=== PATIENT | female | born 1980 | race Caucasian/White ===

== ENCOUNTER 2017-09-30 08:16 | Emergency (ER) | payer BC ==
[2017-09-30 08:51] VITALS: BP 102/50
--- NOTE | 2017-09-30 09:39 | UC ---
Respiratory Complaint HPI - HPI Summary HPI Summary: 1 WEEK OF CHEST TIGHTNESS, NAUSEA, ST, SINUS PRESSURE, COUGH AND SUBJECTIVE FEVER. FEELS IT IS HARD TO TAKE A DEEP BREATH. - History of Current Complaint Chief Complaint: UCRespiratory Stated Complaint: SINUS PAIN,COUGH,DIFFICULTY BREATHING Time Seen by Provider: 09/30/17 09:15 Hx Obtained From: Patient Hx Last Menstrual Period: 09/02/17 Onset/Duration: Gradual Onset, Lasting Days, Still Present Timing: Constant Severity Initially: Moderate Severity Currently: Moderate Pain Intensity: 5 Pain Scale Used: 0-10 Numeric Character: Cough: Nonproductive Aggravating Factors: Nothing Alleviating Factors: Nothing Associated Signs And Symptoms: Positive: Dyspnea, Fever, Chills, URI, Nasal Congestion, Sinus Discomfort - Allergies/Home Medications Allergies/Adverse Reactions: Allergies Allergy/AdvReac Type Severity Reaction Status Date / Time No Known Allergies Allergy Verified 09/30/17 08:32 Home Medications: Home Medications Amphetamine-Dextroamphetamine [Adderall 10 mg-] 1 tab PO Q8HR 09/30/17 [History Confirmed 09/30/17] PMH/Surg Hx/FS Hx/Imm Hx Psychological History: Anxiety, Depression - Surgical History Surgical History: Yes Surgery Procedure, Year, and Place: jaw surgery 1994. laparoscopy for ovarian cyst removal 2009 OR 2010 - Family History Known Family History: Positive: Hypertension, Other - father with brain cancer, mother with brain tumor , breast cancer - Social History Alcohol Use: Rare Alcohol Amount: /2 month Substance Use Type: None Smoking Status (MU): Never Smoked Tobacco Have You Smoked in the Last Year: No - Immunization History Most Recent Influenza Vaccination: 2014 Most Recent Tetanus Shot: UNSURE Review of Systems Constitutional: Chills, Fatigue ENT: Sore Throat, Nasal Discharge Respiratory: Cough Cardiovascular: Negative Gastrointestinal: Nausea All Other Systems Reviewed And Are Negative: Yes Physical Exam Triage Information Reviewed: Yes Appearance: Well-Appearing, No Pain Distress, Well-Nourished Vital Signs: Initial Vital Signs Temp 97.8 F 09/30/17 08:25 Pulse 112 09/30/17 08:25 Resp 18 09/30/17 08:25 BP 102/50 09/30/17 08:25 Pulse Ox 100 09/30/17 08:25 Vital Signs Reviewed: Yes Eyes: Positive: Conjunctiva Clear ENT: Positive: Hearing grossly normal, Pharynx normal, TMs normal Neck: Positive: Supple, Nontender, No Lymphadenopathy Respiratory Exam: Normal Cardiovascular: Positive: Tachycardia Abdomen Description: Positive: Soft Musculoskeletal: Positive: No Edema Neurological: Positive: Alert Psychological: Positive: Age Appropriate Behavior Skin: Negative: rashes UC Diagnostic Evaluation - Laboratory O2 Sat by Pulse Oximetry: 100 Respiratory Course/Dx - Differential Dx/Diagnosis Provider Diagnoses: ACUTE BRONCHITIS Discharge - Discharge Plan Condition: Stable Disposition: HOME Prescriptions: Albuterol HFA INHALER* [Ventolin HFA Inhaler*] 2 puff INH Q4H PRN #1 mdi PRN Reason: Shortness Of Breath Amoxicillin PO (*) [Amoxicillin 500 MG CAP*] 1,000 mg PO Q12H #28 cap Benzonatate CAP* [Tessalon CAP*] 1 - 2 cap PO TID PRN #30 cap PRN Reason: Cough Patient Education Materials: Acute Bronchitis (ED) Referrals: Pavan Valle MD [Primary Care Provider] - If Needed
== END 2017-09-30 09:37 | disposition home or self-care (01) ==
LOC: UCEAST 08:16
DX: J20.9 Acute bronchitis, unspecified (principal); F41.9 Anxiety disorder, unspecified; F32.9 Major depressive disorder, single episode, unspecified
CPT/HCPCS: 99212; G0463

== ENCOUNTER 2017-10-10 08:21 | Emergency (ER) | payer BC ==
--- NOTE | 2017-10-10 09:30 | UC ---
Respiratory Complaint HPI - HPI Summary HPI Summary: 37 yo female with 3 week hx of nausea/wt loss (about 6 LBS), productive cough, mild BHANDARI, tremors, malaise and dizziness no fever/chills aches all over - History of Current Complaint Chief Complaint: UCRespiratory Stated Complaint: COUGH NAUSEA WEAK Time Seen by Provider: 10/10/17 08:46 Hx Obtained From: Patient Hx Last Menstrual Period: 09/13/17 Onset/Duration: Gradual Onset, Lasting Weeks Timing: Constant Severity Initially: Mild Severity Currently: Moderate Pain Intensity: 4 Pain Scale Used: 0-10 Numeric Character: Cough: Productive Aggravating Factors: Exertion, Deep Breaths Alleviating Factors: Nothing - Allergies/Home Medications Allergies/Adverse Reactions: Allergies Allergy/AdvReac Type Severity Reaction Status Date / Time No Known Allergies Allergy Verified 10/10/17 08:41 PMH/Surg Hx/FS Hx/Imm Hx Previously Healthy: Yes Psychological History: Anxiety, Depression - Surgical History Surgical History: Yes Surgery Procedure, Year, and Place: jaw surgery 1994. laparoscopy for ovarian cyst removal 2009 OR 2010 - Family History Known Family History: Positive: Hypertension, Other - father with brain cancer, mother with brain tumor , breast cancer - Social History Alcohol Use: Rare Alcohol Amount: /2 month Substance Use Type: None Smoking Status (MU): Never Smoked Tobacco Have You Smoked in the Last Year: No - Immunization History Most Recent Influenza Vaccination: 2014 Most Recent Tetanus Shot: UNSURE Review of Systems Constitutional: Fatigue Skin: Negative Eyes: Negative ENT: Nasal Discharge, Sinus Congestion, Sinus Pain/Tenderness Respiratory: Cough Cardiovascular: Palpitations Gastrointestinal: Negative Genitourinary: Negative Motor: Negative Neurovascular: Negative Musculoskeletal: Negative Neurological: Headache, Weakness Psychological: Negative Is Patient Immunocompromised?: No All Other Systems Reviewed And Are Negative: Yes Physical Exam Triage Information Reviewed: Yes Appearance: Well-Appearing, No Pain Distress, Well-Nourished, Thin Vital Signs: Initial Vital Signs Temp 98.8 F 10/10/17 08:32 Pulse 94 10/10/17 08:32 Resp 14 10/10/17 08:32 BP 122/65 10/10/17 08:32 Pulse Ox 100 10/10/17 08:32 Eyes: Positive: Conjunctiva Clear ENT: Positive: Hearing grossly normal, Nasal congestion, TMs normal, Sinus tenderness, Uvula midline. Negative: Nasal drainage, TM bulging, TM dull, TM red, Tonsillar swelling, Tonsillar exudate, Trismus, Muffled voice, Hoarse voice , Dental tenderness Dental Exam: Normal Neck: Positive: Supple, Nontender, No Lymphadenopathy Respiratory: Positive: Lungs clear, Normal breath sounds, No respiratory distress, No accessory muscle use Cardiovascular: Positive: RRR, No Murmur Abdomen Description: Negative: Nontender - diffuse mild tenderness, CVA Tenderness (R), CVA Tenderness (L) Musculoskeletal: Positive: ROM Intact, No Edema Neurological: Positive: Alert Psychological Exam: Normal Skin Exam: Normal UC Diagnostic Evaluation - Laboratory O2 Sat by Pulse Oximetry: 100 - normal/not hypoxic - Radiology Xray Interpretation: No Acute Changes - CXR Radiology Interpretation Completed By: Radiologist Re-Evaluation - Re-Evaluation First Eval Re-Evaluation Time: 11:18 Change: Improved - feels much better Respiratory Course/Dx - Differential Dx/Diagnosis Provider Diagnoses: bronchitis. dehydration Discharge - Discharge Plan Condition: Stable Disposition: HOME Prescriptions: Azithromycin TAB* [Zithromax TAB*] 250 mg PO DAILY #6 tab Patient Education Materials: Dehydration (ED) Referrals: Pavan Valle MD [Primary Care Provider] - As Soon As Possible Additional Instructions: blood work pending recheck for new or worsening symptoms
[2017-10-10] MEDS ORDERED: NS 0.9% 1000 ML* 1,000 ML BOLUS ONE (10:04)
--- NOTE | 2017-10-10 10:37 | RAD ---
INDICATION: Cough x3 weeks COMPARISON: Previous chest x-ray April 27, 2015 TECHNIQUE: PA and lateral views of the chest were obtained. FINDINGS: The heart and mediastinum are normal in size and contour. The lungs are grossly clear. There is no evidence of large pleural effusion. Visualized bones are normal for the patient's age. There is no radiographic evidence of free air beneath the diaphragm IMPRESSION: No radiographic evidence of acute cardiopulmonary disease.
[2017-10-10 11:12] VITALS: BP 114/71
[2017-10-10 16:30] LABS: Hematocrit 43 % (35-47); Hemoglobin 14.5 g/dl (12.0-16.0); Mean Corpuscular HGB Conc 34 g/dl (31-36); Mean Corpuscular Hemoglobin 31 pg (27-31); Mean Corpuscular Volume 91 fL (80-97); Mean Platelet Volume 7 um3 (7.4-10.4); Red Blood Count 4.69 10^6/ul (4.0-5.4); Red Cell Distribution Width 12 % (10.5-15); White Blood Count 8.8 10^3/ul (3.5-10.8)
[2017-10-10 16:40] LABS: BUN/Creatinine Ratio 13.9 (8-20); Blood Urea Nitrogen 10 mg/dL (6-24); CO2 Carbon Dioxide 25 mmol/L (22-32); Calcium 9.8 mg/dL (8.6-10.3); Chloride 101 mmol/L (101-111); EGFR Non-African American 90.2 (>60); Glucose 76 mg/dL (70-100); Sodium 138 mmol/L (133-145)
[2017-10-10 16:43] LABS: Anion Gap 12 mmol/L (2-11)
== END 2017-10-10 11:27 | disposition home or self-care (01) ==
LOC: UCEAST 08:21
DX: J20.9 Acute bronchitis, unspecified (principal); E86.0 Dehydration; F41.9 Anxiety disorder, unspecified; F32.9 Major depressive disorder, single episode, unspecified
CPT/HCPCS: 36415; 71020; 80048; 85025; 99212; G0463

== ENCOUNTER 2019-02-10 21:50 | Emergency (ER) | payer BC ==
[2019-02-10 22:04] VITALS: BP 113/67
[2019-02-10] MEDS ORDERED: LORazepam INJ* 2 MG/ML 1 ML VIAL IV PUSH ONE (22:47)
[2019-02-10] MEDS ORDERED: Ondansetron INJ* 2 MG/ML VIAL IV ONE (22:48)
--- NOTE | 2019-02-10 22:51 | ED ---
Nausea/Vomiting/Diarrhea HPI - HPI Summary HPI Summary: ONSET 3 PM TODAY OF WATERY DIARRHEA AND CRAMPY ABDOMINAL PAIN. EPISODES ABOUT EVERY HOUR. LAST 2 EPISODES WERE [place] BLOOD. haS ALSO HAD NAUSEA AND 3-4 EPISODES OF VOMITING. NO FEVER. PATIENT FEELS SLIGHTLY SHORT OF BREATH AND DIZZY BUT ADMITS TO HAVING ANXIETY WHICH CAN MANIFEST SIMILAR SYMPTOMS. SHE DENIES ANY RECENT TRAVEL OR ANTIBIOTIC USE. NO QUESTIONABLE FOODS OF WHICH SHE IS AWARE. - History of Current Complaint Chief Complaint: UCGI Stated Complaint: BLOODY DIARRHEA Time Seen by Provider: 02/10/19 21:54 Hx Obtained From: Patient Hx Last Menstrual Period: 12/30/18 Onset/Duration: Sudden Onset, Lasting Hours, Still Present Timing: Constant Severity Initially: Moderate Severity Currently: Moderate Pain Intensity: 4 Pain Scale Used: 0-10 Numeric Location: Diffuse Character: Dull, Cramping Aggravating Factor(s): Nothing Alleviating Factor(s): Nothing Nausea/Vomiting Presence: Nauseated, Vomiting Vomiting Frequency: Every 3-4 hours Nausea/Vomiting Duration: 0-12 hours Vomiting Characteristics: Nonbilious Diarrhea Presence: Yes Diarrhea Frequency: Every 1-2 hours - Her care I have a 38-year-old - Allergies/Home Medications Allergies/Adverse Reactions: Allergies Allergy/AdvReac Type Severity Reaction Status Date / Time No Known Allergies Allergy Verified 02/10/19 21:54 Home Medications: Home Medications L.acidoph,Paracasei, B.lactis [Probiotic] 1 each PO BID 02/10/19 [History Confirmed 02/10/19] PMH/Surg Hx/FS Hx/Imm Hx Endocrine/Hematology History: Denies: Hx Diabetes, Hx Thyroid Disease Cardiovascular History: Denies: Hx Hypertension Respiratory History: Denies: Hx Asthma, Hx Chronic Obstructive Pulmonary Disease (COPD) GI History: Denies: Hx Ulcer Neurological History: Reports: Hx Migraine Psychiatric History: Reports: Hx Anxiety - Cancer History Hx Chemotherapy: No Hx Radiation Therapy: No - Surgical History Surgery Procedure, Year, and Place: jaw surgery 1994. laparoscopy for ovarian cyst removal 2009 OR 2010 Infectious Disease History: No Infectious Disease History: Denies: Hx Clostridium Difficile, Hx Hepatitis, Hx Human Immunodeficiency Virus (HIV), Hx of Known/Suspected MRSA, Hx Shingles, Hx Tuberculosis, Hx Known/ Suspected VRE, Hx Known/Suspected VRSA, History Other Infectious Disease, Traveled Outside the [place] in Last 30 Days - Family History Known Family History: Positive: Hypertension, Other - father with brain cancer, mother with brain tumor , breast cancer - Social History Alcohol Use: None Alcohol Amount: /2 month Substance Use Type: Reports: None Hx Tobacco Use: No Smoking Status (MU): Never Smoked Tobacco Have You Smoked in the Last Year: No Physical Exam Vital Signs On Initial Exam: Initial Vitals Temp Pulse Resp BP Pulse Ox 98.4 F 85 18 113/67 100 02/10/19 21:58 02/10/19 21:58 02/10/19 21:58 02/10/19 21:58 02/10/19 21:58 Diagnostics - Vital Signs Vital Signs Temp Pulse Resp BP Pulse Ox 02/10/19 21:58 98.4 F 85 18 113/67 100 - Laboratory Lab Statement: Any lab studies that have been ordered have been reviewed, and results considered in the medical decision making process. Discharge - Discharge Plan Referrals: Dayan Romero MD [Primary Care Provider] -
[2019-02-10] MEDS ORDERED: NS 0.9% 1000 ML** 1,000 ML IV SCH (23:00)
[2019-02-10] MEDS ORDERED: NS 0.9% 1000 ML** 1,000 ML IV ONE (23:01)
--- NOTE | 2019-02-10 23:01 | UC ---
Nausea/Vomiting/Diarrhea HPI - HPI Summary HPI Summary: ONSET ABOUT 3 PM TODAY OF CRAMPY ABDOMINAL PAIN AND WATERY DIARRHEA. EPISODES OCCURRING ABOUT EVERY HOUR. LAST 2 EPISODES WERE [place] BLOOD. SHE ALSO HAS HAD SOME NAUSEA AND ABOUT 3-4 EPISODES OF VOMITING. SHE DENIES ANY FEVER. NO RECENT TRAVEL, ANTIBIOTIC USE OR QUESTIONABLE FOODS. SHE IS COMPLAINING OF SOME MILD SHORTNESS OF BREATH AND DIZZINESS BUT ALSO HAS A HISTORY OF ANXIETY AND STATES THESE SYMPTOMS COULD BE DUE TO THAT. - History of Current Complaint Chief Complaint: UCGI Stated Complaint: BLOODY DIARRHEA Time Seen by Provider: 02/10/19 21:54 Hx Obtained From: Patient Hx Last Menstrual Period: 12/30/18 Onset/Duration: Sudden Onset, Lasting Hours, Still Present Timing: Constant Severity Initially: Moderate Severity Currently: Moderate Pain Intensity: 4 Pain Scale Used: 0-10 Numeric Location: Diffuse Character: Cramping Aggravating Factor(s): Nothing Alleviating Factor(s): Nothing Nausea/Vomiting Presence: Nauseated, Vomiting Vomiting Frequency: Every 3-4 hours Nausea/Vomiting Duration: 0-12 hours Vomiting Characteristics: Nonbilious Diarrhea Presence: Yes Diarrhea Frequency: Every 1-2 hours Diarrhea Duration: 0-12 hours Diarrhea Characteristics: Watery, Bright Red Blood per Rect - Allergies/Home Medications Allergies/Adverse Reactions: Allergies Allergy/AdvReac Type Severity Reaction Status Date / Time No Known Allergies Allergy Verified 02/10/19 21:54 Home Medications: Home Medications L.acidoph,Paracasei, B.lactis [Probiotic] 1 each PO BID 02/10/19 [History Confirmed 02/10/19] PMH/Surg Hx/FS Hx/Imm Hx - Additional Past Medical History Additional PMH: PCOS Neurological History: Migraine Psychological History: Anxiety - Surgical History Surgical History: Yes Surgery Procedure, Year, and Place: jaw surgery 1994. laparoscopy for ovarian cyst removal 2009 OR 2010 - Family History Known Family History: Positive: Hypertension, Other - father with brain cancer, mother with brain tumor , breast cancer - Social History Alcohol Use: None Alcohol Amount: /2 month Substance Use Type: None Smoking Status (MU): Never Smoked Tobacco Have You Smoked in the Last Year: No - Immunization History Most Recent Influenza Vaccination: 2014 Most Recent Tetanus Shot: UNSURE Review of Systems All Other Systems Reviewed And Are Negative: Yes Constitutional: Positive: Negative Respiratory: Positive: Negative Cardiovascular: Positive: Negative Gastrointestinal: Positive: Abdominal Pain, Vomiting, Diarrhea, Nausea Genitourinary: Positive: Negative Psychological: Positive: Anxious Physical Exam Triage Information Reviewed: Yes Appearance: Well-Appearing, No Pain Distress, Well-Nourished Vital Signs: Initial Vital Signs Temp 98.4 F 02/10/19 21:58 Pulse 85 02/10/19 21:58 Resp 18 02/10/19 21:58 BP 113/67 02/10/19 21:58 Pulse Ox 100 02/10/19 21:58 Vital Signs Reviewed: Yes Eyes: Positive: Conjunctiva Clear ENT: Positive: Hearing grossly normal, Pharynx normal, TMs normal Neck: Positive: Supple, Nontender, No Lymphadenopathy Respiratory Exam: Normal Cardiovascular Exam: Normal Abdomen Description: Positive: Soft, Other: - DIFFUSELY TENDER. Negative: CVA Tenderness (R), CVA Tenderness (L), Distended, Guarding Bowel Sounds: Positive: Present Musculoskeletal: Positive: No Edema Neurological: Positive: Alert Psychological: Positive: Age Appropriate Behavior, Other: - ANXIOUS Skin: Negative: Rashes Naus/Vom/Diarrhea Course/Dx - Course Course Of Treatment: PATIENT WITH NEW ONSET OF BLOODY DIARRHEA TODAY. SHE HAS A COUSIN WITH CROHN'S DISEASE HOWEVER THE PATIENT HAS NEVER BEEN EVALUATED FOR INFLAMMATORY BOWEL DISEASE NOR HAS SHE HAD ANY SUSPICIOUS SYMPTOMS PRIOR TO TODAY. CONCERN FOR ENTEROHEMORRHAGIC E. COLI. PATIENT IS EXTREMELY ANXIOUS ABOUT HER SYMPTOMS. DISCUSSED DRAWING LABS TODAY AND HAVING HER FOLLOW-UP WITH GI ON TUESDAY HOWEVER GIVEN HER LEVEL OF ANXIETY AND DISTINCTLY TENDER ABDOMEN WILL SEND TO THE ER FOR FURTHER EVALUATION. THE PATIENT DID TAKE 1 MG OF ATIVAN BY MOUTH JUST PRIOR TO LEAVING THE . 4 MG OF ZOFRAN GIVEN IV. STOOL STUDIES HAVE BEEN SENT FROM HERE. FOBT POSITIVE. - Differential Dx/Diagnosis Provider Diagnosis: Bloody diarrhea Condition At Discharge: Stable - Physician Notification/Consults Discussed Case/Management/Disposition Of Patient With: Bryn Hou - TO [facility] [place] ER BY AMBULANCE Time Discussed With Above Provider: 23:00 Instructed by Provider To: Will See In ED Discharge - Sign-Out/Discharge Documenting (check all that apply): Patient Departure All imaging exams completed and their final reports reviewed: No Studies - Discharge Plan Condition: Stable Disposition: TRANS HIGHER LVL OF CARE FAC Referrals: Dayan Romero MD [Primary Care Provider] - - Billing Disposition and Condition Condition: STABLE Disposition: Trans Higher Lvl of Care Fac
--- NOTE | 2019-02-13 13:07 | UC ---
- Progress Note Progress Note: CALLED AND SPOKE WITH PATIENT. ADVISED THAT STOOL STUDIES SHOWED POSITIVE LACTOFERRIN CONSISTENT WITH COLITIS IDENTIFIED ON CT SCAN DONE IN THE ER. O& P AND C. DIFFICILE NEGATIVE. FULL CULTURE STILL PENDING. PATIENT STATES HER SYMPTOMS ARE MUCH IMPROVED AND SHE NO LONGER HAS BLOODY DIARRHEA. WILL BE FOLLOWING UP WITH HER PCP DR. ROMERO. I DISCUSSED WITH PATIENT HER FINDING OF SMALL BOWEL INTUSSUSCEPTION. SHE STATES THIS WAS DISCUSSED WITH HER IN THE ER AND GIVEN THAT IT WAS NONOBSTRUCTIVE SHE WAS ADVISED TO MONITOR HER SYMPTOMS AND FOLLOW-UP WITH HER PCP WHICH SHE IS DOING. IF HER SYMPTOMS WERE TO RETURN I RECOMMENDED SHE GO BACK TO THE ER AND FOLLOW-UP WITH [facility]. Course/Dx - Diagnoses Provider Diagnoses: Bloody diarrhea - Provider Notifications Time Discussed With Above Provider: 23:00 Instructed by Provider To: MD Will See In ED Discharge - Sign-Out/Discharge Documenting (check all that apply): Post-Discharge Follow Up All imaging exams completed and their final reports reviewed: No Studies - Discharge Plan Condition: Stable Disposition: TRANS HIGHER LVL OF CARE FAC Referrals: Dayan Romero MD [Primary Care Provider] - - Billing Disposition and Condition Condition: STABLE Disposition: Trans Higher Lvl of Care Fac
== END 2019-02-10 23:08 | disposition short-term general hospital (02) ==
LOC: UCEAST 21:50
DX: K92.1 Melena (principal); R11.2 Nausea with vomiting, unspecified; R10.84 Generalized abdominal pain; R06.02 Shortness of breath; R42 Dizziness and giddiness; F41.9 Anxiety disorder, unspecified
CPT/HCPCS: 83630; 87045; 87046; 87328; 87329; 87493; 87899; 96361; 96374; 99213; G0463; J2405

== ENCOUNTER 2019-02-10 23:34 | Emergency (ER) | payer BC ==
[2019-02-10] MEDS ORDERED: Ondansetron INJ* 2 MG/ML VIAL IV ONE (23:59)
[2019-02-10] MEDS ORDERED: NS 0.9% 1000 ML** 2,000 ML IV ONE (23:59)
[2019-02-11] MEDS ORDERED: Dicyclomine CAP* 10 MG PO ONE
--- NOTE | 2019-02-11 00:08 | ED ---
Abdominal Pain/Female - HPI Summary HPI Summary: Pt is a 38 y/o F presenting to the ED with a chief complaint of abd pain in the periumbilical area, described as a dull cramping onset tonight after dinner. She reports associated nausea, vomiting, bloody diarrhea, and dizziness. She denies fever. She reports a hx of spontaneously losing a lot of weight, and then she started taking probiotics which helped keep her regular but also had her gain back some of the weight. She denies recent travel or illness. - History of Current Complaint Chief Complaint: EDAbdPain Stated Complaint: BLOODY STOOL PER EMS Time Seen by Provider: 02/10/19 23:39 Hx Obtained From: Patient Hx Last Menstrual Period: 12/30/18 Onset/Duration: Sudden Onset, Lasting Hours, Still Present Timing: Hours Severity Initially: Moderate Severity Currently: Moderate Pain Intensity: 5 Pain Scale Used: 0-10 Numeric Location: Umbilical Radiates: No Character: Dull, Cramping Aggravating Factor(s): Nothing Alleviating Factor(s): Nothing Associated Signs and Symptoms: Positive: Dizzy, Blood in Stool, Nausea, Vomiting , Diarrhea Allergies/Adverse Reactions: Allergies Allergy/AdvReac Type Severity Reaction Status Date / Time No Known Allergies Allergy Verified 02/10/19 23:35 PMH/Surg Hx/FS Hx/Imm Hx Previously Healthy: Yes Endocrine/Hematology History: Denies: Hx Diabetes, Hx Thyroid Disease Cardiovascular History: Denies: Hx Hypertension Respiratory History: Denies: Hx Asthma, Hx Chronic Obstructive Pulmonary Disease (COPD) GI History: Denies: Hx Ulcer - Cancer History Hx Chemotherapy: No Hx Radiation Therapy: No - Surgical History Surgery Procedure, Year, and Place: jaw surgery 1994. laparoscopy for ovarian cyst removal 2009 OR 2010 Infectious Disease History: No Infectious Disease History: Denies: Hx Clostridium Difficile, Hx Hepatitis, Hx Human Immunodeficiency Virus (HIV), Hx of Known/Suspected MRSA, Hx Shingles, Hx Tuberculosis, Hx Known/ Suspected VRE, Hx Known/Suspected VRSA, History Other Infectious Disease, Traveled Outside the [place] in Last 30 Days - Family History Known Family History: Positive: Hypertension, Other - father with brain cancer, mother with brain tumor , breast cancer - Social History Alcohol Use: None Alcohol Amount: /2 month Hx Substance Use: No Substance Use Type: Reports: None Hx Tobacco Use: No Smoking Status (MU): Never Smoked Tobacco Have You Smoked in the Last Year: No Review of Systems Negative: Fever Positive: Abdominal Pain, Vomiting, Diarrhea, Nausea, Other - blood in stool Neurological: Other - dizziness All Other Systems Reviewed And Are Negative: Yes Physical Exam - Summary Physical Exam Summary: Appearance: Well-appearing, Well-nourished, lying in bed comfortably Skin: Warm, dry, no obvious rash Eyes: sclera anicteric, no conjunctival pallor ENT: mucous membranes moist, pharynx appears normal Neck: Supple, nontender Respiratory: Clear to auscultation, no signs of respiratory distress Cardiovascular: Normal S1, S2. No murmurs. Normal distal pulses in tibial and radial bilaterally. Abdomen: Soft, nontender, normal active bowel sounds present Musculoskeletal: Normal, Strength/ROM Intact Neurological: A&Ox3, awake and alert, mentation is normal, speech is fluent and appropriate Psychiatric: affect is normal, does not appear anxious or depressed Triage Information Reviewed: Yes Vital Signs On Initial Exam: Initial Vitals Temp Pulse Resp BP Pulse Ox 98.1 F 72 16 127/76 100 02/10/19 23:35 02/10/19 23:35 02/10/19 23:35 02/10/19 23:35 02/10/19 23:35 Vital Signs Reviewed: Yes Diagnostics - Vital Signs Vital Signs Temp Pulse Resp BP Pulse Ox 02/10/19 23:35 98.1 F 72 16 127/76 100 - Laboratory Result Diagrams: 02/11/19 00:18 02/11/19 00:18 Lab Statement: Any lab studies that have been ordered have been reviewed, and results considered in the medical decision making process. - CT Abd/pelv CT CT Interpretation Completed By: Radiologist Summary of CT Findings: 1. Fatty infiltration of the liver. 2. 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 3. Left pelvic small bowel intussusception measuring proximally 5.7 cm in length with no significant obstruction. 4. Minimal nonspecific left colitis from the splenic flexure to the rectum. 5. Otherwise negative CT abdomen/pelvis. ED physician has reviewed this report. Abdominal Pain Fem Course/Dx - Course Course Of Treatment: Pt is a 38 y/o F presenting to the ED with a chief complaint of abd pain in the periumbilical area, described as a dull cramping onset tonight after dinner. She reports associated nausea, vomiting, bloody diarrhea, and dizziness. She denies fever, recent travel, or recent illness. Abd/pelv CT shows: 1. Fatty infiltration of the liver. 2. 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 3. Left pelvic small bowel intussusception measuring proximally 5.7 cm in length with no significant obstruction. 4. Minimal nonspecific left colitis from the splenic flexure to the rectum. 5. Otherwise negative CT abdomen/pelvis. She will be sent home with a dx of colitis, and the pt is agreeable with this plan. - Diagnoses Provider Diagnoses: Colitis Discharge - Sign-Out/Discharge Documenting (check all that apply): Patient Departure Patient Received Moderate/Deep Sedation with Procedure: No - Discharge Plan Condition: Good Disposition: HOME Prescriptions: Ondansetron ODT TAB* [Zofran 4 MG Odt TAB*] 8 mg PO Q6H PRN #12 tab.odt PRN Reason: Nausea Patient Education Materials: Infectious Colitis (ED) Referrals: Dayan Romero MD [Primary Care Provider] - - Billing Disposition and Condition Condition: GOOD Disposition: Home - Attestation Statements Document Initiated by Yarelis: Yes Documenting Scribe: Arely Estevez Provider For Whom Yarelis is Documenting (Include Credential): Bryn Hou MD. Scribe Attestation: Arely Wheeler scribed for Bryn Hou MD. on 02/11/19 at 0627. Scribe Documentation Reviewed: Yes Provider Attestation: The documentation as recorded by the Arely sun accurately reflects the service I personally performed and the decisions made by , Bryn Hou MD. Status of Scribtyrel Document: Viewed
[2019-02-11 00:26] LABS: ABS Basophils 0.1 10^3/ul (0-0.2); ABS Eosinophils 0.1 10^3/ul (0-0.6); ABS Lymphocytes 2.1 10^3/ul (1.0-4.8); ABS Monocytes 0.6 10^3/ul (0-0.8); ABS Neutrophils 6.7 10^3/ul (1.5-7.7); ABS Nucleated RBC 0 10^3/ul; Eosinophil % 0.6 %; Hematocrit 38 % (33-41); Hemoglobin 13.1 g/dL (12.0-16.0); Lymphocyte % 22.5 %; Mean Corpuscular HGB Conc 35 g/dL (31-36); Mean Corpuscular Hemoglobin 32 pg (27-31); Mean Corpuscular Volume 92 fL (80-97); Mean Platelet Volume 6.2 fL (7.4-10.4); Nucleated Red Blood Cells % 0.1; Platelet Count 403 10^3/uL (150-450); Red Blood Count 4.12 10^6 /uL (3.70-4.87); Red Cell Distribution Width 12 % (10.5-15); White Blood Count 9.5 10^3/uL (3.5-10.8)
[2019-02-11 00:43] LABS: ALT 12 U/L (7-52); AST 13 U/L (13-39); Albumin 3.9 g/dL (3.2-5.2); Albumin/Globulin Ratio 1.4 (1-3); Alkaline Phosphatase 38 U/L (34-104); Anion Gap 9 mmol/L (2-11); BUN/Creatinine Ratio 16.2 (8-20); Blood Urea Nitrogen 12 mg/dL (6-24); CO2 Carbon Dioxide 25 mmol/L (22-32); Calcium 8.7 mg/dL (8.6-10.3); Chloride 104 mmol/L (101-111); EGFR African American 105.2 (>60); EGFR Non-African American 86.9 (>60); Globulin 2.7 g/dL (2-4); Glucose 112 mg/dL (70-100); Potassium 3.6 mmol/L (3.5-5.0); Sodium 138 mmol/L (135-145); Total Protein 6.6 g/dL (6.4-8.9)
[2019-02-11 00:49] LABS: HCG Pregnancy < 0.60 mIU/mL
[2019-02-11 01:05] LABS: Urine Appearance Clear; Urine Bacteria Absent (Absent); Urine Bilirubin Negative (Negative); Urine Blood 2+ (Negative); Urine Color Yellow; Urine Glucose Negative (Negative); Urine Ketones 1+ (Negative); Urine Nitrite Negative (Negative); Urine Protein Negative (Negative); Urine Red Blood Cell Trace(0-2/hpf) (Absent); Urine Squamous Epithelial Cell Present (Absent); Urine Urobilinogen Negative (Negative); Urine White Blood Cell Absent (Absent)
[2019-02-11] MEDS ORDERED: Morphine 4 MG/ML VIAL (1 ml) 4 MG/ML VIAL IV ONE (01:20)
[2019-02-11] MEDS ORDERED: Iohexol 300* (CONTRAST) 10 ML SDV IV ONE (01:40)
[2019-02-11] MEDS ORDERED: Azithromycin TAB* 250 MG PO ONE (04:03)
[2019-02-11 04:27] VITALS: BP 118/69
--- NOTE | 2019-02-12 13:14 | ED ---
Progress - Progress Note Progress Note: Patient seen for bloody diarrhea, subsequently went to ER for further evaluation. Labs negative for c. diff. No change in treatment, no call back needed. -[facility] PAC Course/Dx - Course Course Of Treatment: Pt is a 38 y/o F presenting to the ED with a chief complaint of abd pain in the periumbilical area, described as a dull cramping onset tonight after dinner. She reports associated nausea, vomiting, bloody diarrhea, and dizziness. She denies fever, recent travel, or recent illness. Abd/pelv CT shows: 1. Fatty infiltration of the liver. 2. 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 3. Left pelvic small bowel intussusception measuring proximally 5.7 cm in length with no significant obstruction. 4. Minimal nonspecific left colitis from the splenic flexure to the rectum. 5. Otherwise negative CT abdomen/pelvis. She will be sent home with a dx of colitis, and the pt is agreeable with this plan. - Diagnoses Provider Diagnoses: Colitis Discharge - Sign-Out/Discharge Documenting (check all that apply): Patient Departure Patient Received Moderate/Deep Sedation with Procedure: No - Discharge Plan Condition: Good Disposition: HOME Prescriptions: Ondansetron ODT TAB* [Zofran 4 MG Odt TAB*] 8 mg PO Q6H PRN #12 tab.odt PRN Reason: Nausea Patient Education Materials: Infectious Colitis (ED) Referrals: Dayan Romero MD [Primary Care Provider] - - Billing Disposition and Condition Condition: GOOD Disposition: Home
== END 2019-02-11 04:26 | disposition home or self-care (01) ==
LOC: ED 23:34
DX: K52.9 Noninfective gastroenteritis and colitis, unspecified (principal); R10.9 Unspecified abdominal pain; R42 Dizziness and giddiness; R11.2 Nausea with vomiting, unspecified
CPT/HCPCS: 36415; 74177; 80053; 81003; 81015; 83690; 84702; 85025; 96361; 96374; 96375; 99283; A9270-GY; J2270; J2405; Q9967

== ENCOUNTER 2022-07-15 05:57 | Inpatient (IN) ==
[~2022-07-15 05:57] MED LIST: Acetaminophen IV 1 GM/100ML 1,000 MG/100 ML BAG IV SCH; HYDROmorphone 0.5 MG/0.5 ML SYRINGE IV SCH; Lidocaine 2% PF 5 ML VIAL INJ SCH; Lidocaine 4% CREAM (LMX) 5 GM TUBE TOPICAL SCH; Metoclopramide 5 MG/ML VIAL (10 mg) IV SCH; Propofol 10 MG/ML 20 ML BTL IV SCH; Propofol 10 MG/ML 50 ML BTL IV SCH; Succinylcholine 200 mg VIAL 20 mg/ml 10 ml VIAL (200 mg) IV SCH; fentaNYL 100 mcg/2 ml 50 MCG/ML VIAL IV SCH
[2022-07-15] MEDS ORDERED: Lactated Ringers 1000 ml BAG 1,000 ML IV SCH (06:00)
[2022-07-15] MEDS ORDERED: Buffered Lidocaine 1% SYRIN 1 ml INTRADERM ONE (06:00)
[2022-07-15] MEDS ORDERED: Heparin 5000 UNITS/ML 1 mL VIAL ONE (06:41)
[2022-07-15] MEDS ORDERED: Scopolamine 1 mg/72hr PATCH ONE (06:41)
[2022-07-15] MEDS ORDERED: Dexamethasone IV 4 MG/ML VIAL 1 ml VIAL ONE (06:42)
[2022-07-15] MEDS ORDERED: ceFAZolin 2 GM in NS PREMIX 2 GM/100 ML BAG IVPB ONE (06:42)
[2022-07-15] MEDS ORDERED: Ondansetron 4 mg VIAL 2 MG/ML 2 ml VIAL ONE (06:42)
[2022-07-15] MEDS ORDERED: Gentamicin ADULT 40 MG/ML VIAL (2 ML VIAL = 80 MG) ONE (07:16)
[2022-07-15] MEDS ORDERED: Bupivacaine 0.25% SDV 30 ML ONE ×2 (07:16→08:58)
[2022-07-15] MEDS ORDERED: Povidone Iodine 5% OPTH 30 ML BTL ONE (07:16)
[2022-07-15] MEDS ORDERED: ceFAZolin VIAL VIAL ONE (07:16)
[2022-07-15] MEDS ORDERED: ISOSULFAN BLUE 1% 5 ML VIAL 10 MG/ML SUBCUT ONE (07:48)
[2022-07-15] MEDS ORDERED: ceFAZolin 1 GM ADVAN 1 GM ADDV.VIAL IVPB ONE (09:49)
[2022-07-15] MEDS ORDERED: Benzocaine/Menthol LOZ PO PRN (11:09)
[2022-07-15] MEDS ORDERED: Scopolamine 1 mg/72hr PATCH TRANSDERM PRN (11:18)
[2022-07-15] MEDS ORDERED: fentaNYL 100 mcg/2 ml 50 MCG/ML VIAL IV PRN (11:18)
[2022-07-15] MEDS ORDERED: Ondansetron 4 mg VIAL 2 MG/ML 2 ml VIAL IV PRN (11:18)
[2022-07-15] MEDS ORDERED: Prochlorperazine 5 mg/ml 2 ml VIAL (10 mg) IV PRN (11:18)
[2022-07-15] MEDS ORDERED: Famotidine IV 10 MG/ML 2 ml VIAL (20 mg) ONE (11:44)
[2022-07-15] MEDS ORDERED: Scopolamine 1 mg/72hr PATCH TRANSDERM SCH (12:00)
[2022-07-15] MEDS ORDERED: HYDROmorphone 0.5 MG/0.5 ML SYRINGE ONE (13:16)
[2022-07-15] MEDS ORDERED: HYDROmorphone 1 MG/1 ML SYRINGE ONE (15:37)
[2022-07-15] MEDS: HYDROmorphone 1 MG/1 ML SYRINGE IV PRN ×2 (15:39→16:24)
[2022-07-15] MEDS: Heparin 5000 UNITS/ML 1 mL VIAL SUBCUT SCH ×2 (16:43→22:01)
[2022-07-15] MEDS: HYDROcodone/ACETAMIN 5/325 mg TAB PO PRN (18:49)
[2022-07-15] MEDS: ceFAZolin 2 GM in NS PREMIX 2 GM/100 ML BAG IVPB SCH (20:46)
[2022-07-15] MEDS: Morphine 2 MG/ML SYRINGE IV PRN (21:52)
[2022-07-15] MEDS ORDERED: RIZATRIPTAN 10 MG PO ONE (22:00)
[2022-07-16] MEDS ORDERED: RIZATRIPTAN 10 MG PO PRN
[2022-07-16] MEDS: HYDROcodone/ACETAMIN 5/325 mg TAB PO PRN (02:49)
[2022-07-16] MEDS: ceFAZolin 2 GM in NS PREMIX 2 GM/100 ML BAG IVPB SCH ×3 (04:23→20:21)
[2022-07-16] MEDS: Heparin 5000 UNITS/ML 1 mL VIAL SUBCUT SCH ×3 (05:22→20:20)
[2022-07-16] MEDS: Morphine 2 MG/ML SYRINGE IV PRN (05:36)
[2022-07-16] MEDS ORDERED: Magnesium Hydroxide LIQ 30 ML UDC PO PRN (08:08)
[2022-07-16] MEDS ORDERED: Rizatriptan 5 mg TAB (NF) PO PRN (10:23)
[2022-07-16] MEDS: RIBOFLAVIN 100 MG PO SCH (10:30)
[2022-07-16] MEDS: Ethinyl Estradiol/Drospirenone TABLE(NF)T PO SCH (10:51)
[2022-07-16] MEDS ORDERED: Magnesium Hydroxide LIQ 30 ML UDC PO SCH (21:00)
[2022-07-17] MEDS: ceFAZolin 2 GM in NS PREMIX 2 GM/100 ML BAG IVPB SCH (04:09)
[2022-07-17] MEDS: Heparin 5000 UNITS/ML 1 mL VIAL SUBCUT SCH (05:09)
[2022-07-17] MEDS: RIBOFLAVIN 100 MG PO SCH (10:15)
[2022-07-17] MEDS: Ethinyl Estradiol/Drospirenone TABLE(NF)T PO SCH (10:15)
[2022-07-17 11:26] VITALS: BP 112/75
== END 2022-07-17 12:20 | disposition home or self-care (01) | DRG 362 ==
LOC: SSU → AA 05:57 → INTOOBSV 05:57 → OBSVTOIN 11:02
PROVIDERS: ADMIT Student in an Organized Health Care Education/Training Program; ATTEND Student in an Organized Health Care Education/Training Program